=== PATIENT | male | born 1960 | race Caucasian/White ===

== ENCOUNTER 2025-06-14 23:56 | Emergency (ER) | payer MEDICARE ==
[~2025-06-14] VITALS: Ht 167.6 cm; Wt 64.0 kg
[2025-06-15] VITALS: O2SAT 100
[2025-06-15] MEDS: ACETAMINOPHEN 325MG TABLET PO ONE (01:07)
[2025-06-15] MEDS: SODIUM CHLORIDE 0.9% 1,000 ML IV ONE ×2 (01:08→03:04)
[2025-06-15 01:14] LABS: BASOPHILS % 0.8 % (0.0-2.0); EOSINOPHILS % 0.5 % (0.0-5.0); HEMATOCRIT. 36.0 % (42.0-52.0); HEMOGLOBIN. 12.4 g/dL (14.0-18.0); LYMPHOCYTES % 14.7 % (20.0-50.0); MEAN PLATELET VOLUME 8.2 fl (7.4-10.4); MONOCYTES % 14.1 % (2.0-8.0); NEUTROPHILS % 69.9 % (40.0-76.0); PLATELET 181 x1000/uL (130-400); RED BLOOD CELL COUNT 3.54 mill/uL (4.7-6.1); RED CELL DISTRIBUTION WIDTH 12.9 % (11.6-14.6)
[2025-06-15 01:26] LABS: CREATININE 0.7 mg/dL (0.6-1.3)
[2025-06-15 01:27] LABS: ETHANOL BLOOD < 10 mg/dL (<10); UREA NITROGEN BLOOD 8 mg/dL (9-23)
[2025-06-15 01:34] LABS: *AMPHETAMINES SCREEN URINE NEGATIVE (NEGATIVE); *BARBITURATES SCREEN URINE NEGATIVE (NEGATIVE); *BENZODIAZEPINES SCREEN URINE NEGATIVE (NEGATIVE); *COCAINE SCREEN URINE NEGATIVE (NEGATIVE); CANNABINOID URINE SCREEN NEGATIVE (NEGATIVE); ECSTASY MDMA SCREEN URINE NEGATIVE (NEGATIVE); METHADONE URINE SCREEN NEGATIVE (NEGATIVE); OPIATES URINE SCREEN NEGATIVE (NEGATIVE); PHENCYCLIDINE URINE SCREEN NEGATIVE (NEGATIVE)
[2025-06-15] MEDS ORDERED: ACET-2708 MT (03:37)
[2025-06-15 04:04] VITALS: BP 133/80; PULSE 70; RESP 17; TEMP 36.9; O2SAT 95
== END 2025-06-15 04:25 | disposition home or self-care (01) ==
LOC: ER 23:56
DX: R60.0 Localized edema (principal); M79.671 Pain in right foot; M79.672 Pain in left foot; F31.9 Bipolar disorder, unspecified; G40.909 Epilepsy, unspecified, not intractable, without status epilepticus; Z00.00 Encounter for general adult medical examination without abnormal findings; Z91.010 Allergy to peanuts
CPT/HCPCS: 99284; 80305; 80048; 80320; 82550; 85025; 36415; 73630; 93970; 96360; 96361; J7030; A4606; G0480